=== PATIENT | female | born 1930 | race Caucasian/White ===

== ENCOUNTER 2016-11-23 08:45 | Emergency (ER) | payer MEDICARE, OTHER ==
[~2016-11-23] VITALS: Ht 167.6 cm; Wt 58.0 kg
[~2016-11-23 08:45] MED LIST: LEVO50TA51 PO; MIDO5 PO; RIVA15 PO; SALT PO; THERTAB41 PO; VITA400D PO
[2016-11-23 08:47] VITALS: BP 189/92; PULSE 82; RESP 20; TEMP 97.4; O2SAT 96
[2016-11-23] MEDS ORDERED: ATEN25TA PO (09:03)
[2016-11-23] MEDS ORDERED: MIDO5TAB PO (09:03)
[2016-11-23] MEDS ORDERED: XARE15TA PO (09:03)
[2016-11-23] MEDS ORDERED: CYAN1TAB24 PO (09:03)
[2016-11-23] MEDS ORDERED: CHOL1TAB29 PO (09:03)
[2016-11-23] MEDS ORDERED: SODIUM PO (09:03)
[2016-11-23] MEDS ORDERED: LEVO50TA4 PO (09:04)
[2016-11-23] MEDS ORDERED: BACT800T5 PO (09:11)
--- NOTE | 2016-11-23 09:11 | PD ---
HPI Chief Complaint: Complaint Time Seen by Provider: 08:58 Travel History International Travel<30 days: No Contact w/Intl Traveler<30days: No Traveled to known affect area: No History of Present Illness HPI 86-year-old female complains of dysuria and frequency and hematuria. Patient states that the symptoms started this morning. Patient has history of atrial fibrillation and status post pacemaker placement. Patient's on Xarelto. Patient denies any headache. Patient denies any chest pain or shortness of breath. Patient denies abdominal pain. Patient denies any back pain. Patient denies any fever chills. PFSH Past Medical History Hx Anticoagulant Therapy: Yes (XERALTO) Blood Disorders: No Cancer: No Cardiovascular Problems: Yes Chemotherapy: No Cerebrovascular Accident: No Diabetes: No Diminished Hearing: No Endocrine: No Gastrointestinal Disorders: No Genitourinary: No Hypertension: Yes Immune Disorder: No Musculoskeletal: Yes (ARTHRITIS IN BACK) Neurologic: Yes (SYNCOPE) Psychiatric: No Reproductive: No Respiratory: No Past Surgical History Appendectomy: Yes Eye Surgery: Yes (bilateral cataracts) Hysterectomy: Yes Other Surgery: Yes Social History Alcohol Use: No Tobacco Use: No Substance Use: No Allergies-Medications (Allergen,Severity, Reaction): Coded Allergies: Codeine (Verified Allergy, Severe, 11/23/16) Reported Meds & Prescriptions Reported Meds & Active Scripts Active Bactrim DS (Sulfamethoxazole-Trimethoprim) 800-160 Mg Tab 1 Tab PO BID Reported Levothyroxine (Levothyroxine Sodium) 50 Mcg Tab 50 Mcg PO DAILY B12 (Cyanocobalamin) 1,000 Mcg Tab 1,000 Mcg PO DAILY D3 2000 (Cholecalciferol) 2,000 Unit Tab 2,000 Unit PO DAILY Atenolol 25 Mg Tab 25 Mg PO DAILY [sodium tablet] 4 Tab PO DAILY Midodrine 5 Mg Tab 5 Mg PO TID Xarelto (Rivaroxaban) 15 Mg Tab 15 Mg PO DAILY Review of Systems General / Constitutional: No: Fever Eyes: No: Visual changes HENT: No: Headaches Cardiovascular: No: Chest Pain or Discomfort Respiratory: No: Shortness of Breath Gastrointestinal: No: Abdominal Pain Genitourinary: Positive: Frequency, Dysuria, Hematuria Musculoskeletal: No: Pain Skin: No Rash Neurologic: No: Weakness Psychiatric: No: Depression Endocrine: No: Polydipsia Hematologic/Lymphatic: No: Easy Bruising Physical Exam Narrative GENERAL: Well-nourished, well-developed patient. SKIN: Focused skin assessment warm/dry. HEAD: Normocephalic. EYES: No scleral icterus. No injection or drainage. NECK: Supple, trachea midline. No JVD or lymphadenopathy. CARDIOVASCULAR: Regular rate and rhythm without murmurs, gallops, or rubs. RESPIRATORY: Breath sounds equal bilaterally. No accessory muscle use. GASTROINTESTINAL: Abdomen soft, non-tender, nondistended. MUSCULOSKELETAL: No cyanosis, or edema. BACK: Nontender without obvious deformity. No CVA tenderness. Neurologic exam normal. Data Data Last Documented VS Vital Signs Date Time Temp Pulse Resp B/P Pulse Ox O2 Delivery O2 Flow Rate FiO2 11/23/16 09:16 61 17 98 Room Air 11/23/16 08:47 97.4 Orders Urinalysis - C+S If Indicated (11/23/16 09:05) Sulfamet-Trimeth Ds 800-160 Mg (Bactrim (11/23/16 09:15) Urine Culture (11/23/16 09:10) Labs Laboratory Tests Test 11/23/16 09:10 Urine Color DARK-ORANGE Urine Turbidity HAZY Urine pH 6.5 Urine Specific [place] 1.009 Urine Protein 30 mg/dL Urine Glucose (UA) NEG mg/dL Urine Ketones NEG mg/dL Urine Occult Blood LARGE Urine Nitrite NEG Urine Bilirubin NEG Urine Urobilinogen LESS THAN 2.0 MG/DL Urine Leukocyte Esterase LARGE Urine RBC /hpf Urine WBC 59 /hpf Urine Bacteria FEW /hpf Microscopic Urinalysis Comment CULTURE INDICATED MDM Medical Decision Making Medical Screen Exam Complete: Yes Emergency Medical Condition: Yes Interpretation(s) UA positive for WBC RBC . Differential Diagnosis Differential diagnosis including urethritis, UTI, pyelonephritis, nephrolithiasis, coagulopathy. Narrative Course 86-year-old female with dysuria frequency hematuria. Patient has history of atrial fibrillation and pacemaker placement. Patient's on Xarelto. Diagnosis Primary Impression: UTI (urinary tract infection) Qualified Code: N30.01 - Acute cystitis with hematuria Patient Instructions: General Instructions Additional Instructions: Bactrim DS as directed. Follow-up with personal physician. Return if increasing hematuria persistent hematuria worsening condition. Med/Other Pt SpecificInfo: Prescription(s) given Scripts Sulfamethoxazole-Trimethoprim (Bactrim DS)800-160 Mg Tab1 Tab PO BID #14 TAB Prov:Farzad Abad MD 11/23/16 Disposition: 01 DISCHARGE HOME Condition: Stable Farzad Abad MD November 23, 2016 09:11
[2016-11-23] MEDS ORDERED: SULFAMETHOXAZOLE-TRIMETHOPRIM DS 800-160 MG TAB PO ONE (09:15)
[2016-11-23 09:16] VITALS: PULSE 61; RESP 17; O2SAT 98
[2016-11-23 09:46] LABS: BACTERIA, URINE FEW /hpf; BLOOD, URINE LARGE (NEG); GLUCOSE,URINE NEG (NEG); KETONE, URINE NEG (NEG); NITRITE,URINE NEG (NEG); PH, URINE 6.5 (5.0-8.5)
[2016-11-23 09:48] LABS: URINE COLOR DARK-ORANGE (YELLW/STRAW)
[2016-11-23 09:49] LABS: COMMENT (UR) CULTURE INDICATED; CULTURE IF INDICATED CULTURE INDICATED
== END 2016-11-23 10:09 | disposition home or self-care (01) ==
LOC: NEPE 08:45
DX: N39.0 Urinary tract infection, site not specified (principal); B96.5 Pseudomonas (aeruginosa) (mallei) (pseudomallei) as the cause of diseases classified elsewhere; R31.9 Hematuria, unspecified; I10 Essential (primary) hypertension; Z79.01 Long term (current) use of anticoagulants
CPT/HCPCS: 81001; 87077; 87086; 87186; 99283

== ENCOUNTER 2016-12-26 09:16 | Emergency (ER) | payer MEDICARE, OTHER ==
[~2016-12-26] VITALS: Ht 165.1 cm; Wt 55.0 kg
[~2016-12-26 09:16] MED LIST changes: +ATEN25TA PO; +BACT800T5 PO; +CHOL1TAB29 PO; +CYAN1TAB24 PO; +LEVO50TA4 PO; -LEVO50TA51 PO; -MIDO5 PO; +MIDO5TAB PO; -RIVA15 PO; -SALT PO; +SODIUM PO; -THERTAB41 PO; -VITA400D PO; +XARE15TA PO
[2016-12-26 09:18] VITALS: BP 175/72; PULSE 67; RESP 20; TEMP 97.8; O2SAT 96
[2016-12-26 09:30] VITALS: BP 166/75; PULSE 70; RESP 18; O2SAT 97
--- NOTE | 2016-12-26 10:44 | RADRPT ---
EXAM DATE/TIME: 12/26/2016 10:13 [facility] COMPARISON: No previous studies available for comparison. INDICATIONS : Fall this morning. MEDICAL HISTORY : Hypothyroidism. A-fib SURGICAL HISTORY : Appendectomy. Hysterectomy. Pacemaker. ENCOUNTER: Initial ACUITY: 1 day PAIN SCORE: 10/10 LOCATION: Right Wrist. FINDINGS: There is a intra-articular fracture distal radius with slight posterior and dorsal displacement of th e fracture fragments. There is also a minimally displaced ulnar styloid fracture. Soft tissue swellin g present. No dislocation. Bones are osteopenic. CONCLUSION: 1. Mildly displaced Colles' fracture left wrist. David Capellan MD on December 26, 2016 at 10:41 Board Certified Radiologist. This report was verified electronically.
[2016-12-26] MEDS ORDERED: ONDANSETRON HCL 4 MG/2 ML VIAL IVP ONE (10:45)
[2016-12-26] MEDS ORDERED: MORPHINE SULFATE 4 MG/ML INJ IV ONE (10:45)
--- NOTE | 2016-12-26 10:45 | RADRPT ---
EXAM DATE/TIME: 12/26/2016 10:17 [facility] COMPARISON: CT CERVICAL SPINE W/O CONTRAST, August 28, 2015, 14:32. INDICATIONS : Trauma. Status post fall. Patient on Xarelto. RADIATION DOSE: 35.47 CTDIvol (mGy) MEDICAL HISTORY : Cerebrovascular disease. Hypertension. SURGICAL HISTORY : None. ENCOUNTER: Initial ACUITY: 1 day PAIN SCALE: 6/10 LOCATION: cranial TECHNIQUE: Multiple contiguous axial images were obtained of the head. Using automated exposure control and adj ustment of the mA and/or kV according to patient size, radiation dose was kept as low as reasonably a chievable to obtain optimal diagnostic quality images. DICOM format image data is available electro nically for review and comparison. FINDINGS: CEREBRUM: The ventricles are normal for age. No evidence of midline shift, mass lesion, hemorrhage or acute in farction. No extra-axial fluid collections are seen. POSTERIOR FOSSA: The cerebellum and brainstem are intact. The 4th ventricle is midline. The cerebellopontine angle i s unremarkable. EXTRACRANIAL: The visualized portion of the orbits is intact. SKULL: The calvaria is intact. No evidence of skull fracture. CONCLUSION: 1. No acute intracranial abnormality identified. Alden Roth MD on December 26, 2016 at 10:40 Board Certified Radiologist. This report was verified electronically.
--- NOTE | 2016-12-26 10:47 | RADRPT ---
EXAM DATE/TIME: 12/26/2016 10:17 [facility] COMPARISON: WRIST LEFT COMPLETE ([id number]), August 28, 2015, 14:04. INDICATIONS : Fall this morning. MEDICAL HISTORY : Hypothyroidism. A-fib SURGICAL HISTORY : Appendectomy. Hysterectomy. Pacemaker. ENCOUNTER: Initial ACUITY: 1 day PAIN SCORE: 4/10 LOCATION: Left Hand, first digit. FINDINGS: There is a remote healed fracture of the distal radius and ulnar styloid. No acute fracture or disloc ation on the current exam. Osteopenia. CONCLUSION: 1. No acute fracture. Remote Colles' fracture. David Capellan MD on December 26, 2016 at 10:42 Board Certified Radiologist. This report was verified electronically.
--- NOTE | 2016-12-26 11:36 | PD ---
HPI Chief Complaint: Fall Time Seen by Provider: 09:24 Travel History International Travel<30 days: No Contact w/Intl Traveler<30days: No Traveled to known affect area: No History of Present Illness HPI This is an 86-year-old female history of atrial fibrillation, who is on Xarelto , who presents today with facial abrasions and right wrist pain and left thumb pain. The patient denies any loss of consciousness. She denies any headache. She does report face and chin pain. There no other complaints time my examination. PFSH Past Medical History Hx Anticoagulant Therapy: Yes (XERALTO) Arthritis: Yes Atrial Fibrillation: Yes (pacer) Blood Disorders: No Cancer: No Cardiovascular Problems: Yes Chemotherapy: No Cerebrovascular Accident: No Dementia: Yes Diabetes: No Diminished Hearing: No Endocrine: No Gastrointestinal Disorders: No Genitourinary: No Hypertension: No (hypotension due to med) Immune Disorder: No Musculoskeletal: Yes (ARTHRITIS IN BACK) Neurologic: Yes (SYNCOPE) Psychiatric: No Reproductive: No Respiratory: No Tetanus Vaccination: Unknown Influenza Vaccination: Yes Past Surgical History Appendectomy: Yes Cardiac Surgery: Yes (PACEMAKER) Eye Surgery: Yes (bilateral cataracts) Hysterectomy: Yes Pacemaker: Yes ([facility]) Other Surgery: Yes Social History Alcohol Use: No Tobacco Use: No Substance Use: No Allergies-Medications (Allergen,Severity, Reaction): Coded Allergies: Codeine (Verified Allergy, Severe, 11/23/16) Reported Meds & Prescriptions Reported Meds & Active Scripts Active Lortab (Hydrocodone-Acetaminophen) 5-325 Mg Tab 0.5 Tab PO Q6H PRN Bactrim DS (Sulfamethoxazole-Trimethoprim) 800-160 Mg Tab 1 Tab PO BID Reported Levothyroxine (Levothyroxine Sodium) 50 Mcg Tab 50 Mcg PO DAILY B12 (Cyanocobalamin) 1,000 Mcg Tab 1,000 Mcg PO DAILY D3 2000 (Cholecalciferol) 2,000 Unit Tab 2,000 Unit PO DAILY Atenolol 25 Mg Tab 25 Mg PO DAILY [sodium tablet] 4 Tab PO DAILY Midodrine 5 Mg Tab 5 Mg PO TID Xarelto (Rivaroxaban) 15 Mg Tab 15 Mg PO DAILY Review of Systems Except as stated in HPI: all other systems reviewed are Neg Eyes: No: Blurred Vision, Photophobia HENT: Positive: Other (abrasion to the chin and left cheek.), No: Headaches, Neck Pain Cardiovascular: No: Chest Pain or Discomfort, Palpitations Gastrointestinal: No: Nausea, Vomiting Musculoskeletal: Positive: Pain (right wrist and left thumb), No: Weakness Skin: Positive Other (braziers into the left thumb, chin, left cheek) Neurologic: No: Weakness, Dizziness, Headache Physical Exam Narrative GENERAL: Well-developed well-nourished female with obvious abrasions to chin and left cheek. Patient is awake and answering questions appropriate. SKIN: Focused skin assessment warm/dry. HEAD: No scalp lacerations. No hematoma or bruising to the brain.. Normocephalic. EYES: P No scleral icterus. No injection or drainage. ENT: No nasal bleeding or discharge. Mucous membranes pink and moist. NECK: Trachea midline. Supple. No posterior spinous process tenderness. CARDIOVASCULAR: Regular rate. No murmur appreciated. RESPIRATORY: No accessory muscle use. Clear to auscultation. Breath sounds equal bilaterally. GASTROINTESTINAL: Abdomen soft, non-tender, nondistended. Hepatic and splenic margins not palpable. MUSCULOSKELETAL: Right wrist deformity. There is no abrasion to the left thumb and no deformity. Cap refill was less than 3 seconds on the right fingertips. There is strong radial and ulnar pulses. Left wrist with full range of motion. NEUROLOGICAL: Awake and alert. No obvious cranial nerve deficits. Motor grossly within normal limits. Normal speech. Data Data Last Documented VS Vital Signs Date Time Temp Pulse Resp B/P Pulse Ox O2 Delivery O2 Flow Rate FiO2 12/26/16 09:30 70 18 166/75 97 Room Air 12/26/16 09:18 97.8 Orders Finger ([id number]) (12/26/16 09:33) Wrist, Limited (Ap&Lat) (12/26/16 09:33) Ct Brain W/O Iv Contrast(Rout) (12/26/16 09:33) Morphine Inj (Morphine Inj) (12/26/16 10:45) Ondansetron Inj (Zofran Inj) (12/26/16 10:45) [employer] Request For Service (12/26/16 11:13) Acetamin-Hydrocod 325-5 Mg ([place] 5-325 (12/26/16 11:45) MDM Medical Decision Making Medical Screen Exam Complete: Yes Emergency Medical Condition: Yes Differential Diagnosis Wrist fracture versus contusion versus intracranial hemorrhage versus left thumb Narrative Course 86-year-old female who is on Xarelto, status post mechanical fall. The patient has abrasions to her face. CT brain shows no evidence of acute intracranial injury. Right wrist shows a Colles' fracture. Left thumb x-ray shows no evidence of acute injury. The patient's been placed in a sugar tong splint. I spoke with Dr. Caballero, orthopedic surgeon on-call, who requested placing the patient in splint and having her follow up in the office. Daughter is at the bedside will apply Vaseline to the abrasions on her face. She'll be given head injury sheet. She'll also be told to return if there is any change in mentation. Diagnosis Primary Impression: Closed fracture of right wrist Additional Impressions: Facial abrasion left thumb abrasion/contusion Patient Instructions: General Instructions, Head Injury (DC) Additional Instructions: Return if change in mentation. Vaseline or Neosporin to facial abrasions. Follow up with Dr. Caballero, call for an appointment. Med/Other Pt SpecificInfo: Prescription(s) given Scripts Hydrocodone-Acetaminophen (Lortab)5-325 Mg Tab0.5 Tab PO Q6H PRN (PAIN) #20 TAB Ref 0 Prov:Jaime Anna MD 12/26/16 Disposition: 01 DISCHARGE HOME Condition: Stable Jaime Anna MD Dec 26, 2016 11:36
[2016-12-26] MEDS ORDERED: HYDR-3533 PO (11:37)
[2016-12-26] MEDS ORDERED: ACETAMINOPHEN/HYDROcodone 325 MG/5 MG TAB PO ONE (11:45)
== END 2016-12-26 12:13 | disposition home or self-care (01) ==
LOC: NEPC 09:16
DX: S52.531A Colles' fracture of right radius, initial encounter for closed fracture (principal); S00.81XA Abrasion of other part of head, initial encounter; S60.012A Contusion of left thumb without damage to nail, initial encounter; F03.90 Unspecified dementia, unspecified severity, without behavioral disturbance, psychotic disturbance, mood disturbance, and anxiety; Z79.01 Long term (current) use of anticoagulants; Z95.0 Presence of cardiac pacemaker; Z87.39 Personal history of other diseases of the musculoskeletal system and connective tissue; Z86.79 Personal history of other diseases of the circulatory system; W19.XXXA Unspecified fall, initial encounter
CPT/HCPCS: 29125; 70450; 73100; 73140

== ENCOUNTER 2017-11-05 06:42 | Emergency (ER) | payer MEDICARE, OTHER ==
[~2017-11-05] VITALS: Ht 170.2 cm; Wt 56.8 kg
[~2017-11-05 06:42] MED LIST changes: +HYDR-3533 PO
[2017-11-05 06:49] VITALS: BP 182/78; PULSE 62; RESP 16
[2017-11-05] MEDS ORDERED: THERTAB41 (06:59)
[2017-11-05] MEDS ORDERED: METO50TA PO (06:59)
[2017-11-05] MEDS ORDERED: D-20TAB3 PO (06:59)
--- NOTE | 2017-11-05 07:09 | PD ---
HPI Chief Complaint: Altered Mental Status Time Seen by Provider: 06:55 Travel History International Travel<30 days: No Contact w/Intl Traveler<30days: No Traveled to known affect area: No History of Present Illness HPI This is an 87-year-old female who has a history of recent urinary tract infection and dementia who presents to the emergency department sent in because she was more altered noticed by her family. Family is not at the bedside. History is limited due to the patient's dementia. She says she had trouble sleeping last night but denies any pain. PFSH Past Medical History Hx Anticoagulant Therapy: Yes (XERALTO) Arthritis: Yes Atrial Fibrillation: Yes (pacer) Blood Disorders: No Cancer: No Cardiovascular Problems: Yes Chemotherapy: No Cerebrovascular Accident: No Dementia: Yes Diabetes: No Diminished Hearing: No Endocrine: No Gastrointestinal Disorders: No Genitourinary: No Immune Disorder: No Musculoskeletal: Yes (ARTHRITIS IN BACK) Neurologic: Yes (SYNCOPE) Psychiatric: No Reproductive: No Respiratory: No Past Surgical History Appendectomy: Yes Cardiac Surgery: Yes (PACEMAKER) Eye Surgery: Yes (bilateral cataracts) Hysterectomy: Yes Pacemaker: Yes ([facility]) Other Surgery: Yes Social History Alcohol Use: No Tobacco Use: No Substance Use: No Allergies-Medications (Allergen,Severity, Reaction): Coded Allergies: codeine (Unverified Allergy, Severe, 11/05/17) Reported Meds & Prescriptions Reported Meds & Active Scripts Active Reported Metoprolol Tartrate 50 Mg Tab 50 Mg PO DAILY D-2000 Maximum Strength (Cholecalciferol) 2,000 Unit Tab 2,000 Units PO DAILY Thermotabs (Oral Electrolytes) 287 Mg-180 Mg-15 Mg Tab Levothyroxine (Levothyroxine Sodium) 50 Mcg Tab 50 Mcg PO DAILY B12 (Cyanocobalamin) 1,000 Mcg Tab 1,000 Mcg PO DAILY [sodium tablet] 4 Tab PO DAILY Midodrine 5 Mg Tab 5 Mg PO TID Xarelto (Rivaroxaban) 15 Mg Tab 15 Mg PO DAILY Review of Systems ROS Limitations: Poor Historian Physical Exam Narrative GENERAL: Frail elderly female in no acute distress SKIN: Dry with skin tenting. HEAD: Atraumatic. Normocephalic. EYES: Pupils equal and round. No injection or drainage. ENT: Moist mucous membranes NECK: Trachea midline. CARDIOVASCULAR: Regular rate and rhythm. No murmur appreciated. RESPIRATORY: Clear to auscultation. Breath sounds equal bilaterally. GASTROINTESTINAL: Abdomen soft, non-tender, nondistended. MUSCULOSKELETAL: No obvious deformities. NEUROLOGICAL: Confused, knows she is at [facility], says the date is 2018 , slow to answer questions, no obvious cranial nerve deficits. No dysarthria or aphasia. No upper or lower extremity drift. No upper extremity ataxia. Data Data Last Documented VS Vital Signs Date Time Temp Pulse Resp B/P (MAP) Pulse Ox O2 Delivery O2 Flow Rate FiO2 11/05/17 06:49 62 16 182/78 (112) Orders Orders Complete Blood Count With Diff (11/05/17 07:05) Comprehensive Metabolic Panel (11/05/17 07:05) Urinalysis - C+S If Indicated (11/05/17 07:05) Ct Brain W/O Iv Contrast(Rout) (11/05/17 07:05) Blood Glucose (11/05/17 07:05) Ecg Monitoring (11/05/17 07:05) Iv Access Insert/Monitor (11/05/17 07:05) Cath For Specimen (11/05/17 07:05) Oximetry (11/05/17 07:05) Sodium Chloride 0.9% Flush (Ns Flush) (11/05/17 07:15) Urine Culture (11/05/17 07:20) Labs Laboratory Tests Test 11/05/17 07:05 11/05/17 07:20 White Blood Count 6.4 TH/MM3 Red Blood Count 3.82 MIL/MM3 Hemoglobin 12.2 GM/DL Hematocrit 36.0 % Mean Corpuscular Volume 94.3 FL Mean Corpuscular Hemoglobin 31.8 PG Mean Corpuscular Hemoglobin Concent 33.7 % Red Cell Distribution Width 14.8 % Platelet Count 214 TH/MM3 Mean Platelet Volume 7.7 FL Neutrophils (%) (Auto) 47.4 % Lymphocytes (%) (Auto) 41.9 % Monocytes (%) (Auto) 9.1 % Eosinophils (%) (Auto) 1.1 % Basophils (%) (Auto) 0.5 % Neutrophils # (Auto) 3.0 TH/MM3 Lymphocytes # (Auto) 2.7 TH/MM3 Monocytes # (Auto) 0.6 TH/MM3 Eosinophils # (Auto) 0.1 TH/MM3 Basophils # (Auto) 0.0 TH/MM3 CBC Comment DIFF FINAL Differential Comment Blood Urea Nitrogen 11 MG/DL Creatinine 0.85 MG/DL Random Glucose 95 MG/DL Total Protein 7.3 GM/DL Albumin 3.6 GM/DL Calcium Level 9.1 MG/DL Alkaline Phosphatase 57 U/L Aspartate Amino Transf (AST/SGOT) 35 U/L Alanine Aminotransferase (ALT/SGPT) 24 U/L Total Bilirubin 0.6 MG/DL Sodium Level 137 MEQ/L Potassium Level 4.1 MEQ/L Chloride Level 103 MEQ/L Carbon Dioxide Level 24.8 MEQ/L Anion Gap 9 MEQ/L Estimat Glomerular Filtration Rate 63 ML/MIN Urine Color LIGHT-YELLOW Urine Turbidity CLEAR Urine pH 8.0 Urine Specific [place] 1.006 Urine Protein NEG mg/dL Urine Glucose (UA) NEG mg/dL Urine Ketones NEG mg/dL Urine Occult Blood NEG Urine Nitrite NEG Urine Bilirubin NEG Urine Urobilinogen LESS THAN 2.0 MG/DL Urine Leukocyte Esterase LARGE Urine RBC 1 /hpf Urine WBC 4 /hpf Urine Squamous Epithelial Cells <1 /hpf Urine Transitional Epithelial Cells <1 /hpf Urine Bacteria RARE /hpf Urine Hyaline Casts 3 /lpf Microscopic Urinalysis Comment CATH-CULTURE IND MDM Medical Decision Making Medical Screen Exam Complete: Yes Emergency Medical Condition: Yes Interpretation(s) No leukocytosis Electrolytes are reassuring Urinalysis: No infection Last [address] 11/05/17 0705 Signed Impressions: Service Date/Time: November 07:35 - CONCLUSION: 1. No acute abnormality. 2. Mild atrophy. 3. Suspected small vessel ischemic change in the white matter. Luis Otero MD Differential Diagnosis Subdural hematoma, dehydration, urinary tract infection, medication side effect Narrative Course This is an 87-year-old female who presents to the emergency department with altered mental status this morning. I did speak to the patient's daughter. She reports that this morning her mom was confused and was opening up cabinets in the kitchen, not answering questions appropriately and seem difficult to direct. She does have a history of dementia and this is happened in the past when she is gotten dehydrated. She feels like she is back to normal. I do not appreciate any overt signs of stroke on exam. Labs were obtained which were reassuring. CT of the head is unremarkable. I think the patient can be discharged home following some IV hydration. I encouraged the daughter that if she has any other concerns to bring her back to the emergency department at which time we would consider an MRI. Diagnosis Primary Impression: Delirium Patient Instructions: General Instructions Additional Instructions: If you are at all concerned about your mom's mental status, if she is behaving abnormally, or having difficulty speaking or walking return to the emergency room. Med/Other Pt SpecificInfo: No Change to Meds Disposition: 01 DISCHARGE HOME Condition: Stable Sybil Nuñez MD November 05, 2017 07:09
[2017-11-05] MEDS ORDERED: SODIUM CHLORIDE 0.9% FLUSH 10 ML FLUSH IV FLUSH PRN (07:15)
[2017-11-05 07:37] LABS: BASOPHIL % 0.5 % (0.0-2.0); EOSINOPHIL # 0.1 TH/MM3 (0-0.4); EOSINOPHIL % 1.1 % (0.0-4.0); HEMOGLOBIN 12.2 GM/DL (11.6-15.3); LYMPH % 41.9 % (9.0-44.0); LYMPHOCYTE # 2.7 TH/MM3 (1.0-4.8); MEAN CELL VOLUME 94.3 FL (80.0-100.0); MEAN CORPUSCULAR HEMOGLOBIN 31.8 PG (27.0-34.0); MEAN CORPUSCULAR HGB CONC 33.7 % (32.0-36.0); MEAN PLATELET VOLUME 7.7 FL (7.0-11.0); MONO % 9.1 % (0.0-8.0); MONOCYTE # 0.6 TH/MM3 (0-0.9); NEUT % 47.4 % (16.0-70.0); PLATELET COUNT 214 TH/MM3 (150-450); RED BLOOD COUNT 3.82 MIL/MM3 (4.00-5.30); RED CELL DISTRIBUTION WIDTH 14.8 % (11.6-17.2); WHITE BLOOD COUNT 6.4 TH/MM3 (4.0-11.0)
[2017-11-05 07:38] LABS: BACTERIA, URINE RARE /hpf; BILIRUBIN, URINE NEG (NEG); BLOOD, URINE NEG (NEG); GLUCOSE,URINE NEG (NEG); HYALINE CAST, URINE 3 /lpf (RARE); KETONE, URINE NEG (NEG); NITRITE,URINE NEG (NEG); SQUAMOUS EPITHELIAL CELL URINE <1 /hpf (0-5); TRANSITIONAL EPI CELLS, URINE <1 /hpf; URINE COLOR LIGHT-YELLOW (YELLW/STRAW); URINE LEUKOCYTE ESTERASE LARGE (NEG)
--- NOTE | 2017-11-05 07:59 | RADRPT ---
EXAM DATE/TIME: 11/05/2017 07:35 [facility] COMPARISON: CT BRAIN W/O CONTRAST, December 26, 2016, 10:17. INDICATIONS : Altered mental status. RADIATION DOSE: 35.53 CTDIvol (mGy) MEDICAL HISTORY : Dementia. Cardiovascular disease Hypertension. SURGICAL HISTORY : None. ENCOUNTER: Initial ACUITY: 1 day PAIN SCALE: 0/10 LOCATION: cranial TECHNIQUE: Multiple contiguous axial images were obtained of the head. Using automated exposure control and adj ustment of the mA and/or kV according to patient size, radiation dose was kept as low as reasonably a chievable to obtain optimal diagnostic quality images. DICOM format image data is available electro nically for review and comparison. FINDINGS: CEREBRUM: The ventricles and cortical sulci are mildly widened. There is decreased density in the posterior pa raventricular white matter being more prominent on the left. This pattern is stable. No evidence of midline shift, mass lesion, hemorrhage or acute infarction. No extra-axial fluid collections are see n. POSTERIOR FOSSA: The cerebellum and brainstem are intact. The 4th ventricle is midline. The cerebellopontine angle i s unremarkable. EXTRACRANIAL: The visualized portion of the orbits is intact. SKULL: The calvaria is intact. No evidence of skull fracture. CONCLUSION: 1. No acute abnormality. 2. Mild atrophy. 3. Suspected small vessel ischemic change in the white matter. Luis Otero MD on November 05, 2017 at 7:56 Board Certified Radiologist. This report was verified electronically.
[2017-11-05 08:11] LABS: ALKALINE PHOSPHATASE 57 U/L (45-117); TOTAL BILIRUBIN ADULT 0.6 MG/DL (0.2-1.0); TOTAL PROTEIN 7.3 GM/DL (6.4-8.2)
[2017-11-05 08:18] LABS: ALBUMIN 3.6 GM/DL (3.4-5.0); ALT (GPT) 24 U/L (10-53); AST (GOT) 35 U/L (15-37); BICARBONATE 24.8 MEQ/L (21.0-32.0); BLOOD UREA NITROGEN 11 MG/DL (7-18); CALCIUM 9.1 MG/DL (8.5-10.1); CHLORIDE 103 MEQ/L (98-107); CREATININE 0.85 MG/DL (0.50-1.00); GLOMERULAR FILTRATION RATE 63 ML/MIN (>89); GLUCOSE,RANDOM 95 MG/DL (74-106); SODIUM (NA) 137 MEQ/L (136-145)
[2017-11-05 08:25] VITALS: BP 158/92; PULSE 71; RESP 16; TEMP 97.3; O2SAT 97
[2017-11-05] MEDS ORDERED: SODIUM CHLORID 0.9% 500 ML INJ 500 ML IV ONE (08:30)
== END 2017-11-05 09:22 | disposition home or self-care (01) ==
LOC: NEPC 06:42
DX: F03.90 Unspecified dementia, unspecified severity, without behavioral disturbance, psychotic disturbance, mood disturbance, and anxiety (principal)
CPT/HCPCS: 70450; 80053; 81001; 85025; 87086; 99284; J7040